=== PATIENT | male | born 1975 | race Caucasian/White ===

== ENCOUNTER 2023-12-02 18:38 | Inpatient (IN) | payer MEDICAID, OTHER, SELFPAY ==
[~2023-12-02] VITALS: Ht 170.2 cm; Wt 68.2 kg
[2023-12-02] MEDS ORDERED: ATOR1TAB21 PO (18:58)
[2023-12-02] MEDS ORDERED: LISI10TA22 PO (18:58)
[2023-12-02] MEDS ORDERED: INSU100V3 SQ (18:58)
[2023-12-02] MEDS ORDERED: LANTINJ4 SC (18:58)
[2023-12-02 20:02] LABS: BASO # 0.1 10^3/uL (0.0-0.2); BASO % 0.4 % (0.0-1.0); HEMATOCRIT 53.9 % (42.0-52.0); HEMOGLOBIN 18.6 g/dl (13.5-17.5); LYMPH # 1.4 10^3/uL (1.5-5.0); LYMPH % 5.1 % (24.0-44.0); MEAN CORPUSCULAR HEMOGLOBIN 32.8 pg (27.0-33.0); MEAN CORPUSCULAR HGB CONC 34.5 g/dl (32.0-36.5); MEAN CORPUSCULAR VOLUME 95.1 fl (80.0-96.0); MONO # 1.3 10^3/uL (0.0-0.8); MONO % 4.6 % (2.0-8.0); NEUTROPHILS # 24.1 10^3/uL (1.5-8.5); NEUTROPHILS % 88.6 % (36.0-66.0); PLATELET COUNT, AUTOMATED 353 10^3/uL (150-450); RED BLOOD COUNT 5.67 10^6/uL (4.30-6.10); WHITE BLOOD COUNT 27.2 10^3/uL (4.0-10.0)
[2023-12-02 20:12] LABS: ABG BASE EXCESS -10.1 (-2.0-2.0); ABG HCO3 14.2 MMOL/L (22.0-26.0); ABG O2 SATURATION 97.6 % (95.0-99.0); ABG PARTIAL PRESSURE CO2 28.9 mmHg (35.0-45.0); ABG PARTIAL PRESSURE O2 97.9 mmHg (75.0-100.0); ABG STANDARD HCO3 16.8 MMOL/L. (22.0-26.0); ABG TOTAL CO2 15.1 MMOL/L (22.0-29.0); ABG pH (ARTERIAL) 7.309 UNITS (7.350-7.450)
[2023-12-02 20:21] LABS: LIPASE 571 U/L (12-53)
[2023-12-02 20:22] LABS: ACETONE/KETONE 4.17 MMOL/L (0.02-0.27)
[2023-12-02 20:23] LABS: ALBUMIN 4.9 G/DL (3.2-5.2); ALKALINE PHOSPHATASE 153 U/L (46-116); ALT/SGPT 37 U/L (7.0-40); AST/SGOT 22 U/L (<34); BILIRUBIN,DIRECT < 0.1 MG/DL (<0.4); BILIRUBIN,TOTAL 0.3 MG/DL (0.3-1.2); CK-MB VALUE MASS < 1.0 NG/ML (<3.6); CPK CREATINE PHOSPHOKINASE 54 U/L (46-171); MB/CK RELATIVE INDEX 1.85 (< OR =4); TOTAL PROTEIN 8.8 G/DL (5.7-8.2)
[2023-12-02] MEDS ORDERED: INSULIN IV RATE CHANGE DOCUMENTATION ML/HR XX SCH (20:30)
[2023-12-02] MEDS ORDERED: NS 1,000 ML IV ONE (20:30)
[2023-12-02] MEDS ORDERED: HumuLIN R (REGULAR) INSULIN (NovoLIN R) **100U/ML** PER UNIT IV ONE (20:30)
[2023-12-02] MEDS ORDERED: INSULIN REGULAR IN 0.9 % NACL 100 UNIT in IV 1 EA IV SCH (20:30)
[2023-12-02] MEDS ORDERED: LEVEMIR (INSULIN DETEMIR) 1 UNITS/0.01ML SC SCH (21:00)
[2023-12-02 21:13] LABS: PROCALCITONIN 0.62 ng/ml
[2023-12-02] MEDS: ONDANSETRON 4MG 2ML VIAL IV ONE (21:14)
[2023-12-02] MEDS: NS 1,000 ML IV ONE ×2 (21:14→22:44)
[2023-12-02 22:04] LABS: OSMOLALITY SERUM 326 MOSM/KG (275-295)
[2023-12-02] MEDS: PIPERACILLIN/TAZOBACTAM SOD 4.5 GM in D5W MINI-BAG PLUS 50 ML IV ONE (22:44)
[2023-12-02] MEDS ORDERED: INSU100I24 SC (23:01)
[2023-12-02] MEDS ORDERED: ATOR80TA59 PO (23:01)
[2023-12-02] MEDS ORDERED: DEXTROSE 50% 50ML SYRINGE IV PRN (23:45)
[2023-12-02] MEDS ORDERED: KETOROLAC 30 MG/ML 1ML VIAL IV PRN (23:45)
[2023-12-02] MEDS ORDERED: GLUCAGON INJ 1MG VIAL SC PRN (23:45)
[2023-12-02] MEDS ORDERED: GLUCOSE 4 GM CHEW PO PRN (23:45)
[2023-12-02] MEDS ORDERED: HYDROMORPHONE HCL 0.5 MG/ 0.5 ML SYRINGE IV PRN (23:45)
[2023-12-02] MEDS ORDERED: HOME MED LIST COMPLETE! XX SCH (23:50)
[2023-12-03] VITALS (19 sets, daily range): BP systolic 101–154; BP diastolic 55–89; TEMP 98.3–99.7; O2SAT 95–100
[2023-12-03] MEDS ORDERED: INSULIN LISPRO (NovoLOG) PER UNIT SC SCH
[2023-12-03] MEDS: LR 1,000 ML IV ONE (00:14)
[2023-12-03 00:39] LABS: HEMOGLOBIN 15.8 g/dl (13.5-17.5)
[2023-12-03] MEDS ORDERED: LR 1,000 ML IV SCH (01:00)
[2023-12-03 02:30] LABS: CPK CREATINE PHOSPHOKINASE 59 U/L (46-171)
[2023-12-03 02:31] LABS: BLOOD UREA NITROGEN 38 MG/DL (9-23); CALCIUM LEVEL 9.3 MG/DL (8.5-10.1); CARBON DIOXIDE LEVEL 18 MMOL/L (20-31); CHLORIDE LEVEL 108 MMOL/L (98-107); CK-MB VALUE MASS < 1.0 NG/ML (<3.6); CREATININE FOR GFR 1.55 MG/DL (0.70-1.30); GLUCOSE, FASTING 111 MG/DL (60-100); MB/CK RELATIVE INDEX 1.69 (< OR =4); POTASSIUM SERUM 4.7 MMOL/L (3.5-5.1); SODIUM LEVEL 141 MMOL/L (136-145); TRIGLYCERIDES LEVEL 699 MG/DL (<150)
[2023-12-03] MEDS ORDERED: ONDANSETRON 4MG 2ML VIAL IV PRN (03:00)
[2023-12-03] MEDS: D5W/LR 1,000 ML IV SCH (03:21)
[2023-12-03] MEDS: INSULIN REGULAR IN 0.9 % NACL 100 UNIT in IV 1 EA IV SCH (03:25)
[2023-12-03] MEDS: HEPARIN SOD (PORCINE) 5000UNITS/ML 1ML VIAL/SYRINGE SC SCH (06:08)
[2023-12-03 06:17] LABS: BASO % 0.1 % (0.0-1.0); HEMATOCRIT 42.2 % (42.0-52.0); HEMOGLOBIN 14.4 g/dl (13.5-17.5); LYMPH # 1.9 10^3/uL (1.5-5.0); LYMPH % 10.5 % (24.0-44.0); MEAN CORPUSCULAR HEMOGLOBIN 32.2 pg (27.0-33.0); MEAN CORPUSCULAR HGB CONC 34.1 g/dl (32.0-36.5); MEAN CORPUSCULAR VOLUME 94.4 fl (80.0-96.0); MONO # 1.3 10^3/uL (0.0-0.8); NEUTROPHILS # 14.8 10^3/uL (1.5-8.5); PLATELET COUNT, AUTOMATED 255 10^3/uL (150-450); RED BLOOD COUNT 4.47 10^6/uL (4.30-6.10); WHITE BLOOD COUNT 18.1 10^3/uL (4.0-10.0)
[2023-12-03 07:03] LABS: ALBUMIN 3.4 G/DL (3.2-5.2); ALKALINE PHOSPHATASE 100 U/L (46-116); ALT/SGPT 24 U/L (7.0-40); AST/SGOT 14 U/L (<34); BILIRUBIN,TOTAL 0.3 MG/DL (0.3-1.2); BLOOD UREA NITROGEN 31 MG/DL (9-23); CALCIUM LEVEL 9.2 MG/DL (8.5-10.1); CARBON DIOXIDE LEVEL 20 MMOL/L (20-31); CHLORIDE LEVEL 108 MMOL/L (98-107); CREATININE FOR GFR 1.04 MG/DL (0.70-1.30); GLOMERULAR FILTRATION RATE > 60.0 (>60); GLUCOSE, FASTING 201 MG/DL (60-100); PHOSPHORUS LEVEL 3.3 MG/DL (2.5-4.9); POTASSIUM SERUM 3.9 MMOL/L (3.5-5.1); SODIUM LEVEL 140 MMOL/L (136-145); TOTAL PROTEIN 6.1 G/DL (5.7-8.2); TRIGLYCERIDES LEVEL 639 MG/DL (<150)
[2023-12-03 10:36] LABS: BLOOD UREA NITROGEN 26 MG/DL (9-23); CALCIUM LEVEL 9.3 MG/DL (8.5-10.1); CARBON DIOXIDE LEVEL 23 MMOL/L (20-31); CHLORIDE LEVEL 110 MMOL/L (98-107); CREATININE FOR GFR 0.88 MG/DL (0.70-1.30); GLOMERULAR FILTRATION RATE > 60.0 (>60); GLUCOSE, FASTING 141 MG/DL (60-100); PHOSPHORUS LEVEL 2.9 MG/DL (2.5-4.9); POTASSIUM SERUM 3.5 MMOL/L (3.5-5.1); SODIUM LEVEL 143 MMOL/L (136-145)
[2023-12-03] MEDS: ATORVASTATIN 20 MG TAB PO SCH (11:34)
[2023-12-03] MEDS: POTASSIUM CHLORIDE 10% LIQ 20MEQ/15ML UDC PO ONE (11:34)
[2023-12-03 14:54] LABS: BLOOD UREA NITROGEN 18 MG/DL (9-23); CARBON DIOXIDE LEVEL 19 MMOL/L (20-31); CHLORIDE LEVEL 108 MMOL/L (98-107); CREATININE FOR GFR 0.67 MG/DL (0.70-1.30); GLOMERULAR FILTRATION RATE > 60.0 (>60); GLUCOSE, FASTING 265 MG/DL (60-100); PHOSPHORUS LEVEL 1.7 MG/DL (2.5-4.9); POTASSIUM SERUM 4.8 MMOL/L (3.5-5.1); SODIUM LEVEL 139 MMOL/L (136-145)
[2023-12-03] MEDS: CALCIUM CARBONATE 500 MG CHEW U/D PO SCH (18:24)
[2023-12-03 18:56] LABS: BLOOD UREA NITROGEN 13 MG/DL (9-23); CALCIUM LEVEL 8.7 MG/DL (8.5-10.1); CARBON DIOXIDE LEVEL 21 MMOL/L (20-31); CHLORIDE LEVEL 105 MMOL/L (98-107); CREATININE FOR GFR 0.58 MG/DL (0.70-1.30); GLOMERULAR FILTRATION RATE > 60.0 (>60); GLUCOSE, FASTING 226 MG/DL (60-100); PHOSPHORUS LEVEL 1.3 MG/DL (2.5-4.9); SODIUM LEVEL 136 MMOL/L (136-145); TRIGLYCERIDES LEVEL 569 MG/DL (<150)
[2023-12-03] MEDS ORDERED: GLUCOSE 4 GM CHEW PO PRN (19:10)
[2023-12-03] MEDS ORDERED: DEXTROSE 50% 50ML SYRINGE IV PRN (19:10)
[2023-12-03] MEDS ORDERED: GLUCAGON INJ 1MG VIAL SC PRN (19:10)
[2023-12-03] MEDS: LEVEMIR (INSULIN DETEMIR) 1 UNITS/0.01ML SC SCH (19:47)
[2023-12-03] MEDS: INSULIN LISPRO (NovoLOG) PER UNIT SC SCH (19:48)
[2023-12-03] MEDS: FENOFIBRATE 48MG TABLET (TRICOR) PO SCH (20:43)
[2023-12-03] MEDS: SODIUM PHOSPHATE INJ 30 MMOL in D5W 500 ML IV ONE (20:46)
[2023-12-03] MEDS: OMEPRAZOLE 20MG CAP PO ONE (22:01)
[2023-12-03 22:54] LABS: BLOOD UREA NITROGEN 10 MG/DL (9-23); CALCIUM LEVEL 8.5 MG/DL (8.5-10.1); CARBON DIOXIDE LEVEL 26 MMOL/L (20-31); CHLORIDE LEVEL 104 MMOL/L (98-107); GLOMERULAR FILTRATION RATE > 60.0 (>60); GLUCOSE, FASTING 196 MG/DL (60-100); MAGNESIUM LEVEL 1.6 MG/DL (1.8-2.4); PHOSPHORUS LEVEL 2.3 MG/DL (2.5-4.9); POTASSIUM SERUM 3.8 MMOL/L (3.5-5.1); SODIUM LEVEL 137 MMOL/L (136-145)
[2023-12-04] VITALS (7 sets, daily range): BP systolic 98–150; BP diastolic 54–84; TEMP 98.7–99; O2SAT 97–99
[2023-12-04] MEDS: MAG SULF 1GM/100ML (MAG RUN) 1 GM in IV 1 EA IV ONE (00:06)
[2023-12-04 06:05] LABS: ALBUMIN 2.6 G/DL (3.2-5.2); ALKALINE PHOSPHATASE 81 U/L (46-116); ALT/SGPT 16 U/L (7.0-40); AST/SGOT 11 U/L (<34); BILIRUBIN,TOTAL 0.3 MG/DL (0.3-1.2); BLOOD UREA NITROGEN 7 MG/DL (9-23); CALCIUM LEVEL 8.8 MG/DL (8.5-10.1); CARBON DIOXIDE LEVEL 26 MMOL/L (20-31); CHLORIDE LEVEL 105 MMOL/L (98-107); CREATININE FOR GFR 0.48 MG/DL (0.70-1.30); GLOMERULAR FILTRATION RATE > 60.0 (>60); GLUCOSE, FASTING 115 MG/DL (60-100); POTASSIUM SERUM 3.5 MMOL/L (3.5-5.1); SODIUM LEVEL 139 MMOL/L (136-145); TOTAL PROTEIN 5.1 G/DL (5.7-8.2); TRIGLYCERIDES LEVEL 722 MG/DL (<150)
[2023-12-04 06:37] LABS: MAGNESIUM LEVEL 1.9 MG/DL (1.8-2.4)
[2023-12-04] MEDS: INSULIN LISPRO (NovoLOG) PER UNIT SC SCH ×3 (07:30→19:10)
[2023-12-04] MEDS ORDERED: LEVEMIR (INSULIN DETEMIR) 1 UNITS/0.01ML SC SCH ×3 (09:00→21:00)
[2023-12-04] MEDS: LEVEMIR (INSULIN DETEMIR) 1 UNITS/0.01ML SC SCH ×2 (10:34→21:07)
[2023-12-04] MEDS: SODIUM PHOSPHATE INJ 30 MMOL in D5W 500 ML IV ONE (11:06)
[2023-12-04] MEDS: OMEPRAZOLE 20MG CAP PO SCH (11:08)
[2023-12-04 11:18] LABS: BASO % 0.2 % (0.0-1.0); EOS # 0.1 10^3/uL (0.0-0.5); EOS % 0.9 % (0.0-3.0); HEMATOCRIT 36.7 % (42.0-52.0); HEMOGLOBIN 12.5 g/dl (13.5-17.5); LYMPH # 2.1 10^3/uL (1.5-5.0); LYMPH % 20.8 % (24.0-44.0); MEAN CORPUSCULAR HEMOGLOBIN 33.2 pg (27.0-33.0); MEAN CORPUSCULAR HGB CONC 34.1 g/dl (32.0-36.5); MEAN CORPUSCULAR VOLUME 97.3 fl (80.0-96.0); MONO # 0.9 10^3/uL (0.0-0.8); MONO % 8.7 % (2.0-8.0); NEUTROPHILS # 6.9 10^3/uL (1.5-8.5); NEUTROPHILS % 69.2 % (36.0-66.0); PLATELET COUNT, AUTOMATED 180 10^3/uL (150-450); RED BLOOD COUNT 3.77 10^6/uL (4.30-6.10)
[2023-12-04 11:38] LABS: HEMOGLOBIN A1c 11.8 % (4.0-6.0)
[2023-12-04 11:48] LABS: THYROID STIMULATING HORMONE 1.446 uIU/ML (0.55-4.78)
[2023-12-04 11:49] LABS: FREE T4 0.86 NG/DL (0.89-1.76)
[2023-12-04] MEDS: ENOXAPARIN 40MG/0.4ML SYRINGE (J1650 PER 10MG) SC ONE (12:06)
[2023-12-04] MEDS: ATORVASTATIN 20 MG TAB PO SCH (21:03)
[2023-12-05 05:21] LABS: HEMATOCRIT 37.3 % (42.0-52.0); HEMOGLOBIN 12.6 g/dl (13.5-17.5); MEAN CORPUSCULAR HEMOGLOBIN 32.5 pg (27.0-33.0); MEAN CORPUSCULAR HGB CONC 33.8 g/dl (32.0-36.5); MEAN CORPUSCULAR VOLUME 96.1 fl (80.0-96.0); PLATELET COUNT, AUTOMATED 171 10^3/uL (150-450); RED BLOOD COUNT 3.88 10^6/uL (4.30-6.10); WHITE BLOOD COUNT 7.2 10^3/uL (4.0-10.0)
[2023-12-05 05:47] LABS: BLOOD UREA NITROGEN 10 MG/DL (9-23); CALCIUM LEVEL 8.9 MG/DL (8.5-10.1); CARBON DIOXIDE LEVEL 27 MMOL/L (20-31); CHLORIDE LEVEL 103 MMOL/L (98-107); CREATININE FOR GFR 0.55 MG/DL (0.70-1.30); GLOMERULAR FILTRATION RATE > 60.0 (>60); GLUCOSE, FASTING 214 MG/DL (60-100); POTASSIUM SERUM 3.9 MMOL/L (3.5-5.1); SODIUM LEVEL 138 MMOL/L (136-145); TRIGLYCERIDES LEVEL 624 MG/DL (<150)
[2023-12-05] MEDS ORDERED: INSULIN LISPRO (NovoLOG) PER UNIT SC SCH (07:30)
[2023-12-05] MEDS ORDERED: TRES1INJ2 SC (07:53)
[2023-12-05] MEDS ORDERED: TOUJ1.2I SC (07:53)
[2023-12-05] MEDS ORDERED: INSU100I48 SQ (07:53)
[2023-12-05] MEDS ORDERED: BASA100I SC (07:53)
[2023-12-05 08:06] VITALS: BP 144/80; TEMP 98.3; O2SAT 99
[2023-12-05] MEDS: ENOXAPARIN 40MG/0.4ML SYRINGE (J1650 PER 10MG) SC SCH (09:11)
[2023-12-05] MEDS: INSULIN LISPRO (NovoLOG) PER UNIT SC SCH (09:11)
[2023-12-05 09:12] VITALS: BP 144/80
[2023-12-05] MEDS ORDERED: HUMA100I5 SC ×2 (15:07→16:13)
[2023-12-05] MEDS ORDERED: INSU100I24 SC (15:07)
== END 2023-12-05 17:50 | disposition home or self-care (01) | DRG 282 ==
LOC: M ED 18:38 → M ED INP 23:35 → CANRESERV 12-03 00:01 → ENRESERV 12-03 00:01 → M ICU 12-03 03:58
PROVIDERS: ADMIT Internal Medicine; ATTEND Internal Medicine
DX: K85.90 Acute pancreatitis without necrosis or infection, unspecified (principal); N17.9 Acute kidney failure, unspecified; E10.10 Type 1 diabetes mellitus with ketoacidosis without coma; E10.22 Type 1 diabetes mellitus with diabetic chronic kidney disease; E83.39 Other disorders of phosphorus metabolism; E83.42 Hypomagnesemia; E78.1 Pure hyperglyceridemia; I12.9 Hypertensive chronic kidney disease with stage 1 through stage 4 chronic kidney disease, or unspecified chronic kidney disease; N18.9 Chronic kidney disease, unspecified; K21.9 Gastro-esophageal reflux disease without esophagitis; Z79.4 Long term (current) use of insulin; Z79.899 Other long term (current) drug therapy

== ENCOUNTER 2023-12-15 16:18 | Emergency (ER) | payer MEDICAID ==
[~2023-12-15] VITALS: Ht 170.2 cm; Wt 61.5 kg
[~2023-12-15 16:18] MED LIST: ATOR1TAB21 PO; ATOR80TA59 PO; BASA100I SC; HUMA100I5 SC; INSU100I24 SC; INSU100I48 SQ; INSU100V3 SQ; LANTINJ4 SC; LISI10TA22 PO; TOUJ1.2I SC; TRES1INJ2 SC
[2023-12-15 17:32] LABS: VENOUS BASE EXCESS -15.3 (-2.0-2.0); VENOUS HCO3 11.7 MMOL/L (23.0-27.0); VENOUS O2 SATURATION 68.7 % (60.0-80.0); VENOUS PARTIAL PRESSURE CO2 32.5 mmHg (38.0-50.0); VENOUS PARTIAL PRESSURE O2 34.3 mmHg (30.0-50.0); VENOUS PH 7.176 UNITS (7.330-7.430); VENOUS STANDARD HCO3 12.8 MMOL/L; VENOUS TOTAL CO2 12.7 MMOL/L (24.0-28.0)
[2023-12-15] MEDS: NS 1,000 ML IV ONE (17:47)
[2023-12-15 17:50] LABS: BASO # 0.2 10^3/uL (0.0-0.2); BASO % 0.6 % (0.0-1.0); HEMATOCRIT 50.7 % (42.0-52.0); LYMPH # 2.3 10^3/uL (1.5-5.0); LYMPH % 9.4 % (24.0-44.0); MEAN CORPUSCULAR HEMOGLOBIN 32.8 pg (27.0-33.0); MEAN CORPUSCULAR HGB CONC 33.5 g/dl (32.0-36.5); MEAN CORPUSCULAR VOLUME 97.9 fl (80.0-96.0); MONO # 1.4 10^3/uL (0.0-0.8); MONO % 5.9 % (2.0-8.0); NEUTROPHILS # 19.6 10^3/uL (1.5-8.5); NEUTROPHILS % 81.6 % (36.0-66.0); PLATELET COUNT, AUTOMATED 427 10^3/uL (150-450); RED BLOOD COUNT 5.18 10^6/uL (4.30-6.10); WHITE BLOOD COUNT 24.1 10^3/uL (4.0-10.0)
[2023-12-15 18:02] LABS: LIPASE 47 U/L (12-53); OSMOLALITY SERUM 316 MOSM/KG (275-295)
[2023-12-15 18:12] LABS: HEMOGLOBIN A1c 12.6 % (4.0-6.0)
[2023-12-15] MEDS ORDERED: NS IV ONE (18:15)
[2023-12-15 18:21] VITALS: TEMP 98.6
[2023-12-15 18:31] LABS: ACETONE/KETONE > 4.50 MMOL/L (0.02-0.27); ALBUMIN 4.4 G/DL (3.2-5.2); ALKALINE PHOSPHATASE 135 U/L (46-116); ALT/SGPT 49 U/L (7.0-40); AST/SGOT 19 U/L (<34); BILIRUBIN,DIRECT < 0.1 MG/DL (<0.4); BILIRUBIN,TOTAL 0.3 MG/DL (0.3-1.2); BLOOD UREA NITROGEN 26 MG/DL (9-23); CALCIUM LEVEL 10.7 MG/DL (8.5-10.1); CARBON DIOXIDE LEVEL 12 MMOL/L (20-31); CHLORIDE LEVEL 104 MMOL/L (98-107); CREATININE FOR GFR 1.11 MG/DL (0.70-1.30); GLOMERULAR FILTRATION RATE > 60.0 (>60); GLUCOSE, FASTING 110 MG/DL (60-100); MAGNESIUM LEVEL 2.4 MG/DL (1.8-2.4); POTASSIUM SERUM 5.1 MMOL/L (3.5-5.1); SODIUM LEVEL 138 MMOL/L (136-145); TOTAL PROTEIN 8.2 G/DL (5.7-8.2)
[2023-12-15] MEDS ORDERED: ACETAMINOPHEN 500 MG TAB As Ordered ONE (18:59)
[2023-12-15 19:00] VITALS: BP 136/73
[2023-12-15 19:11] VITALS: O2SAT 99
[2023-12-15 19:39] LABS: TRIGLYCERIDES LEVEL 898 MG/DL (<150)
== END 2023-12-15 19:38 | disposition home or self-care (01) ==
LOC: M ED 16:18
DX: R11.10 Vomiting, unspecified (principal); E10.9 Type 1 diabetes mellitus without complications; I10 Essential (primary) hypertension; Z79.811 Long term (current) use of aromatase inhibitors; Z79.02 Long term (current) use of antithrombotics/antiplatelets; Z79.899 Other long term (current) drug therapy; Z53.9 Procedure and treatment not carried out, unspecified reason